=== PATIENT | female | born 1955 | race Two or more races ===

== ENCOUNTER 2022-06-15 21:16 | Inpatient (IN) | payer MEDICARE, OTHER ==
[~2022-06-15] VITALS: Ht 160 cm; Wt 104.6 kg
[2022-06-15 22:19] LABS: Basophils # (auto) 0.1 10 ^3/uL (0-0.2); Basophils % (auto) 0.6 % (0.0-2.0); Eosinophils # (auto) 0.1 10 ^3/uL (0-0.8); Eosinophils % (auto) 0.9 % (0.0-7.0); Hematocrit 36.5 % (36.0-46.0); Hemoglobin 11.8 g/dL (12.2-16.2); Lymphocytes # (auto) 0.9 10 ^3/uL (0.4-5.4); Lymphocytes % (auto) 9.3 % (10.0-50.0); Mean Corpuscular Hemoglobin 27.1 pg (28.0-32.0); Mean Corpuscular Hgb Conc. 32.4 g/dL (32.0-36.0); Mean Corpuscular Volume 83.6 fL (80.0-100.0); Monocytes # (auto) 0.6 10 ^3/uL (0-1.3); Monocytes % (auto) 5.6 % (0.0-12.0); Neutrophils # (auto) 8.5 10 ^3/uL (1.6-8.6); Neutrophils % (auto) 83.6 % (37.0-80.0); Nucleated Red Blood Cells % 0.1 %; Red Blood Cells 4.37 10^6/uL (4.0-5.20); Red Cell Distribution Width 15.8 % (11.8-14.3); White Blood Cell 10.2 10^3/uL (4.4-10.8)
[2022-06-15 22:36] LABS: Albumin 2.9 g/dL (3.4-5.0); Potassium 3.9 mmol/L (3.5-5.1)
[2022-06-15 22:39] LABS: BUN/Creatinine Ratio 31.6; Bilirubin, Total 0.1 mg/dL (0.2-1.0); Total Protein 6.3 g/dL (6.4-8.2)
[2022-06-16] MEDS ORDERED: DexAMETHasone SOD PHOS 10MG/1ML VIAL INJ IM ONE (01:00)
[2022-06-16] MEDS ORDERED: ALBUTEROL SULF 2.5 MG/0.5ML(0.5%) NEB SOLN NEB ONE (01:00)
[2022-06-16] MEDS ORDERED: IPRATROPIUM BROM 0.5 MG/2.5ML INH SOL NEB ONE (01:00)
[2022-06-16] MEDS ORDERED: cefTRIAXone 1GM/50ML D5W 50 ML IV ONE (05:15)
[2022-06-16] MEDS ORDERED: AZITHROMYCIN 250 MG TAB PO ONE (05:15)
[2022-06-16] MEDS ORDERED: IPRATROPIUM BROM 0.5 MG/2.5ML INH SOL NEB PRN (11:00)
[2022-06-16] MEDS ORDERED: DOCUSATE SOD 100 MG CAP PO PRN (11:00)
[2022-06-16] MEDS ORDERED: HYDROcodone-ACET 5/325MG TAB PO PRN (11:00)
[2022-06-16] MEDS ORDERED: ALBUTEROL SULF 2.5 MG/0.5ML(0.5%) NEB SOLN NEB PRN (11:00)
[2022-06-16] MEDS ORDERED: ONDANSETRON HCL 4 MG/2 ML VIAL IV PRN (11:00)
[2022-06-16 11:23] VITALS: BP 140/54
[2022-06-16 22:00] VITALS: BP 136/52
[2022-06-17 05:00] VITALS: BP 135/46
[2022-06-17 05:39] LABS: Basophils # (auto) 0 10 ^3/uL (0-0.2); Basophils % (auto) 0.2 % (0.0-2.0); Eosinophils # (auto) 0.1 10 ^3/uL (0-0.8); Eosinophils % (auto) 0.9 % (0.0-7.0); Hemoglobin 10.8 g/dL (12.2-16.2); Lymphocytes # (auto) 1.7 10 ^3/uL (0.4-5.4); Mean Corpuscular Hemoglobin 26.3 pg (28.0-32.0); Mean Corpuscular Hgb Conc. 31.4 g/dL (32.0-36.0); Monocytes # (auto) 0.8 10 ^3/uL (0-1.3); Red Cell Distribution Width 15.7 % (11.8-14.3)
[2022-06-17 05:41] LABS: Hematocrit 34.3 % (36.0-46.0); Mean Corpuscular Volume 83.9 fL (80.0-100.0); Monocytes % (auto) 7.9 % (0.0-12.0); Neutrophils # (auto) 7.6 10 ^3/uL (1.6-8.6); Red Blood Cells 4.09 10^6/uL (4.0-5.20); White Blood Cell 10.3 10^3/uL (4.4-10.8)
[2022-06-17 05:52] LABS: Potassium 4.1 mmol/L (3.5-5.1)
[2022-06-17 06:00] LABS: Albumin 2.8 g/dL (3.4-5.0); Bilirubin, Total 0.2 mg/dL (0.2-1.0); Calcium 8.6 mg/dL (8.5-10.1); Total Protein 6.5 g/dL (6.4-8.2)
[2022-06-17 09:00] VITALS: BP 131/56
[2022-06-17] MEDS: AZITHROMYCIN 500MG/ 250ML 250 ML IV SCH (09:57)
[2022-06-17] MEDS: NICOTINE 21MG/24 HR TOPICAL PATCH TD SCH (09:57)
[2022-06-17] MEDS: ENOXAPARIN SOD 40 MG/0.4 ML SYRINGE SC SCH (09:57)
[2022-06-17] MEDS: cefTRIAXone 1GM/50ML D5W 50 ML IV SCH (09:58)
[2022-06-17 13:00] VITALS: BP 132/55
[2022-06-17 22:00] VITALS: BP 149/57
[2022-06-17] MEDS ORDERED: guaiFENesin-DM 100/10mg/5ml SYR PO PRN (23:00)
[2022-06-18 05:00] VITALS: BP 153/77
[2022-06-18 08:28] VITALS: BP 152/77
[2022-06-18] MEDS: cefTRIAXone 1GM/50ML D5W 50 ML IV SCH (08:35)
[2022-06-18] MEDS ORDERED: AZIT500T66 PO (09:34)
[2022-06-18] MEDS ORDERED: ALBUAER3 IN (09:34)
[2022-06-18] MEDS ORDERED: METH4PAK PO (09:34)
[2022-06-18] MEDS ORDERED: NIC21P TOP (09:37)
[2022-06-18] MEDS: NICOTINE 21MG/24 HR TOPICAL PATCH TD SCH (10:22)
[2022-06-18] MEDS: AZITHROMYCIN 500MG/ 250ML 250 ML IV SCH (10:22)
[2022-06-18] MEDS: ENOXAPARIN SOD 40 MG/0.4 ML SYRINGE SC SCH (10:22)
[2022-06-18 10:52] VITALS: BP 152/77
[2022-06-18 12:53] VITALS: BP 145/64
[2022-06-18 16:59] VITALS: BP 154/56
[2022-06-18 22:00] VITALS: BP 165/63
[2022-06-19 05:00] VITALS: BP 165/56
[2022-06-19 08:00] VITALS: BP 150/69
[2022-06-19] MEDS: ENOXAPARIN SOD 40 MG/0.4 ML SYRINGE SC SCH (09:56)
[2022-06-19] MEDS: AZITHROMYCIN 500MG/ 250ML 250 ML IV SCH (09:57)
[2022-06-19] MEDS: NICOTINE 21MG/24 HR TOPICAL PATCH TD SCH (09:57)
[2022-06-19] MEDS: cefTRIAXone 1GM/50ML D5W 50 ML IV SCH (09:57)
== END 2022-06-19 12:52 | disposition home or self-care (01) | DRG 193 ==
LOC: ER 21:16 → EDBD 21:16 → OVERFLOW 06-16 10:54 → CENTRAL 06-16 18:25
PROVIDERS: ADMIT Nurse Practitioner Family; ATTEND Family Medicine
DX: J15.9 Unspecified bacterial pneumonia (principal); E43 Unspecified severe protein-calorie malnutrition; J96.01 Acute respiratory failure with hypoxia; Z59.00 Homelessness unspecified; F17.200 Nicotine dependence, unspecified, uncomplicated; E11.9 Type 2 diabetes mellitus without complications; Z20.822 Contact with and (suspected) exposure to COVID-19; R74.01 Elevation of levels of liver transaminase levels; Z71.6 Tobacco abuse counseling
CPT/HCPCS: 36415; 71045; 80053; 83605; 83880; 84484; 85025; 87426; 87804; 94640; 96365; 96372; G0378; J0696; J1100